=== PATIENT | female | born 1985 | race African-American/Black ===

== ENCOUNTER 2023-04-14 16:47 | Emergency (ER) | payer SELFPAY ==
[2023-04-14] MEDS ORDERED: Amoxicillin/Clavulanate K 875-125 MG Tab PO ONE (19:33)
[2023-04-14] MEDS ORDERED: Acetaminophen/HYDROcodone 325-5 MG Tab PO ONE (19:33)
== END 2023-04-14 19:59 | disposition home or self-care (01) ==
LOC: MW.ED 16:47
DX: K04.7 Periapical abscess without sinus (principal); Z88.0 Allergy status to penicillin
CPT/HCPCS: 99282; A9270; 99283

== ENCOUNTER 2024-07-09 15:22 | Emergency (ER) | payer OTHER, MEDICAID ==
[2024-07-09] MEDS: Benzocaine 20% Topical Spray UD MUCMEM ONE (17:01)
[2024-07-09] MEDS: Lidocaine 2% Viscous Solution 15 ML UD PO ONE (17:02)
== END 2024-07-09 17:03 | disposition home or self-care (01) ==
LOC: MW.ED 15:22
DX: K04.7 Periapical abscess without sinus (principal); Z75.8 Other problems related to medical facilities and other health care; Z88.0 Allergy status to penicillin; Z79.899 Other long term (current) drug therapy
CPT/HCPCS: 99282; A9270